=== PATIENT | male | born 1975 | race Hispanic/Latino ===

== ENCOUNTER 2019-04-01 12:01 | Emergency (ER) | payer OTHER ==
[~2019-04-01] VITALS: Ht 170.2 cm; Wt 117.9 kg
--- OUTSIDE RECORDS SUMMARY | 2019-04-01 12:04 | XMS REPORT | Continuity of Care Document ---
Author Author [employer] Organization [employer] Address Unknown Phone Unavailable Care Team Providers Care Credit Control Clerk Name Role Phone [employer] Unavailable Unavailable Problems Problem Status Onset Date Classification Date Reported Comments Source RT ACL Active 08/14/2016 [facility] [place] UNK Active 08/07/2016 [facility] [place] M54.12 - "RADICULOPATHY, CERVICAL REGION Active 06/26/2015 MARTHA Peres Anxiety (finding) Active Problem [facility]/15[facility] [place] Headache (finding) Active Problem 09/15/2016 Larisa [facility] [place] Hypercholesterolemia (disorder) Active Problem 09/15/2016 [facility] [place] Insomnia (disorder) Active Problem 09/15/2016 [facility] Medications Medication Details Route Status Patient Instructions Ordering Provider Order Date Source albuterol (ANES) Route: IV, Drug form: AERO/A, ONCE, Stop date: 08/09/16 13:38:00 SHELL SHOP SUPERVISOR Inactive 08/09/2016 Larisa Fentanyl 25 microgram, 0.5 mL, Route: IV, Drug form: INJ, Q10Min, Dosing Weight 115, kg, PRN Pain Score 6-10, Start date: 08/09/16 13:36:00 SHELL SHOP SUPERVISOR, Duration: 30 day, Stop date: 09/08/16 13:35:00 CSTNotes: (Same as: Sublimaze) Preservative free. Inactive 08/09/2016 Larisa Ondansetron 4 mg, Route: IVP, ONCE, Dosing Weight 115, kg, PRN Nausea & Vomiting, Start date: 08/09/16 13:36:00 SHELL SHOP SUPERVISOR Inactive 08/09/2016 Larisa Morphine 4 mg, Route: IVP, Q5Min, Dosing Weight 115, kg, PRN Pain Score 7-10, Start date: 08/09/16 13:36:00 SHELL SHOP SUPERVISOR, Duration: 3 doses or times, Stop date: Limited # of times Inactive 08/09/2016 [facility] Flumazenil 0.2 mg, Route: IVP, PRN, Dosing Weight 115, kg, PRN Benzodiazepine Reversal, Initial dose, Start date: 08/09/16 13:36:00 SHELL SHOP SUPERVISOR, Duration: 30 day, Stop date: 09/08/16 13:35:00 SHELL SHOP SUPERVISOR Inactive 08/09/2016 [facility] Hydromorphone 0.5 mg, Route: IVP, Q5Min, Dosing Weight 115, kg, PRN Pain Score 7-10, Start date: 08/09/16 13:36:00 SHELL SHOP SUPERVISOR, Duration: 4 doses or times, Stop date: Limited # of times Inactive 08/09/2016 [facility] Naloxone 0.4 mg, Route: IVP, Q2MIN, Dosing Weight 115, kg, PRN Narcotic Reversal, Start date: 08/09/16 13:36:00 SHELL SHOP SUPERVISOR, Duration: 8 doses or times, Stop date: Limited # of times Inactive 08/09/2016 [facility] Oxycodone 10 mg, Route: PO, Drug form: TAB, Q4H, Dosing Weight 115, kg, PRN Pain Score 7-10, Start date: 08/09/16 13:36:00 SHELL SHOP SUPERVISOR, Duration: 30 day, Stop date: 09/08/16 13:35:00 SHELL SHOP SUPERVISOR Inactive 08/09/2016 [facility] Tramadol 50 mg, 1 tab, Route: PO, Drug form: TAB, Q6H, Dosing Weight 115, kg, PRN Pain Score 1-3, Start date: 08/09/16 13:04:00 SHELL SHOP SUPERVISOR, Duration: 30 day, Stop date: 09/08/16 13:03:00 CSTNotes: Not to exceed 400m g/day. (Same As: Ultram) No Longer Active 08/09/2016 [facility] Acetaminophen 325 MG / Hydrocodone Bitartrate 10 MG Oral Tablet 1 tab, Route: PO, Drug Form: TAB, Dosing Weight 115, kg, Q4H, PRN Pain Score 4-6, Start date: 08/09/16 13:04:00 SHELL SHOP SUPERVISOR, Duration: 30 day, Stop date: 09/08/16 13:03:00 CSTNotes: Do not exceed 4gm/day of acetaminophen. (Same as: [place] 325/10) No Longer Active 08/09/2016 [facility] ondansetron (ANES) Route: IV, Drug form: INJ, ONCE, Stop date: 08/09/16 11:48:00 SHELL SHOP SUPERVISOR Inactive 08/09/2016 [facility] ketOROLAC (ANES) IV, ONCE Inactive 08/09/2016 [facility] fentaNYL (ANES) Route: IV, Drug form: INJ, ONCE, Stop date: 08/09/16 11:43:00 SHELL SHOP SUPERVISOR Inactive 08/09/2016 [facility] lidocaine (ANES) Route: IV, Drug form: INJ, ONCE, Stop date: 08/09/16 11:38:00 SHELL SHOP SUPERVISOR Inactive 08/09/2016 [facility] propofol (ANES) Route: IV, Drug form: INJ, ONCE, Stop date: 08/09/16 11:38:00 SHELL SHOP SUPERVISOR Inactive 08/09/2016 [facility] ceFAZolin (ANES) Route: IV, Drug form: INJ, ONCE, Stop date: 08/09/16 11:38:00 SHELL SHOP SUPERVISOR Inactive 08/09/2016 [facility] midazolam (ANES) Route: IV, Drug form: SOLN, ONCE, Stop date: 08/09/16 11:28:00 SHELL SHOP SUPERVISOR Inactive 08/09/2016 [facility] vancomycin (ANES) (ANES) Route: IV, Drug form: INJ, Start date: 08/09/16 11:08:00 SHELL SHOP SUPERVISOR, Stop date: 08/09/16 12:08:00 SHELL SHOP SUPERVISOR Inactive 08/09/2016 [facility] LR 1000 mL INJ (ANES) Route: IV, Total Volume: 1,000, Start date: 08/09/16 10:25:00 SHELL SHOP SUPERVISOR, Stop date: 08/09/16 11:25:00 SHELL SHOP SUPERVISOR Inactive 08/09/2016 [facility] Benadryl 12.5 mg, Route: IVP, ONCE, Dosing Weight 115, kg, PRN Allergic reaction, Start date: 08/09/16 8:45:00 SHELL SHOP SUPERVISOR Inactive 08/09/2016 [facility] Calcium Chloride 0.0014 MEQ/ML / Potassium Chloride 0.004 MEQ/ML / Sodium Chloride 0.103 MEQ/ML / Sodium Lactate 0.028 MEQ/ML Injectable Solution 1,000 mL, Rate: 25 ml/hr, Infuse over: 40 hr, Route: IV, Dosing Weight 115 kg, Total Volume: 1,000, Start date: 08/09/16 6:31:00 SHELL SHOP SUPERVISOR, Duration: 30 day, Stop date: 09/08/16 6:30:00 SHELL SHOP SUPERVISOR Inactive 08/09/2016 [facility] Vancomycin 1,750 mg, Route: IVPB, ONCE, Dosing Weight 115, kg, Start date: 08/09/16 6:15:00 SHELL SHOP SUPERVISOR, Stop date: 08/09/16 6:15:00 SHELL SHOP SUPERVISOR, Pediatric DosingNotes: TIME CRITICAL MEDICATION (Same As: Vancocin) Infusion ra te 2001 mg: infuse over 2.5 hours MEDICATION WASTE Product Size: 1000 mg Product Wasted: ___ mg Inactive 08/09/2016 [facility] Unknown Home Medication cholesterol medication, Refill(s) 0 Active 08/08/2016 [facility] Clonazepam PO, TID, 0 Refill(s) Active 08/08/2016 [facility] Paroxetine PO, 0 Refill(s) Active 08/08/2016 [facility] meloxicam PO, Daily, 0 Refill(s) Active 08/08/2016 [facility] Trazodone PO, 0 Refill(s) Active 08/08/2016 [facility] Allergies, Adverse Reactions, Alerts Substance Category Reaction Severity Reaction type Status Date Reported Comments Source anabolic steroids Assertion Drug allergy Active [facility] [place] Immunizations No Data Provided for This Section Results No Data Provided for This Section Pathology Reports No Data Provided for This Section Diagnostic Reports Report Value Date Source Spine cervical series DX REASON FOR EXAM: M54.12 Radiculopathy, cervical region. COMPARISON: None. FINDINGS: A complete cervical spine series was performed. Five images are submitted. Only 6 cervical vertebral bodies are adequately visualized on the lateral view. There is straightening of the normal cervical lordosis. There are mild degenerative changes of the atlanto-dens interval. There are small anterior marginal osteophytes at C3 and C5. There are right-sided uncal vertebral joint hypertrophy and mild right bony neural foraminal narrowing at C3-C4. The disc spaces are preserved. There is no demonstrable fracture, dislocation or prevertebral soft tissue swelling. IMPRESSION: 1. Straightening of the normal cervical lordosis. 2. Mild degenerative changes of the cervical spine as described above. SL: 15 06/27/2015 MARTHA Peres Consultation Notes No Data Provided for This Section Discharge Summaries No Data Provided for This Section History and Physicals No Data Provided for This Section Vital Signs Vital Sign Value Date Comments Source Systolic (mm Hg) 126 08/09/2016 [facility] Diastolic (mm Hg) 86 08/09/2016 [facility] Respitory Rate 19 08/09/2016 [facility] Systolic (mm Hg) 126 08/09/2016 [facility] Diastolic (mm Hg) 86 08/09/2016 [facility] Respitory Rate 20 08/09/2016 [facility] Systolic (mm Hg) 151 08/09/2016 [facility] Diastolic (mm Hg) 96 08/09/2016 [facility] Respitory Rate 11 08/09/2016 [facility] Heart Rate 81 08/09/2016 [facility] Temperature Oral (F) 98.6 F 08/08/2016 [facility] Heart Rate 96 08/08/2016 [facility] Height 175.26 cm 08/08/2016 [facility] Weight 115 08/08/2016 [facility] BMI Calculated 37.44 08/08/2016 [facility] Encounters Location Location Details Encounter Type Encounter Number Reason For Visit Attending Provider ADM Date DC Date Status Source [facility] [place] [facility] [id number] Kyle Gonzalez 06/27/2015 [facility] [id number] Luis Fregoso 08/09/2016 08/09/2016 [facility] [place] OP Therapy Patients [id number] Luis Fregoso 08/14/2016 09/13/2016 [facility] [place] Procedures Procedure Code Date Perfomer Comments Source Knee joint operation<sup>1</sup> [id number] acl repair [facility] [place] Assessment and Plan No Data Provided for This Section Plan of Care No Data Provided for This Section Social History Social History Date Source Social History TypeResponse Smoking Status Never smoker; Exposure to Tobacco Smoke None; Cigarette Smoking Last 365 Days No; Reg Smoking Cessation Counseling No 08/08/2016 [facility] [place] Social History TypeResponse Smoking Status Never smoker; Exposure to Tobacco Smoke None; Cigarette Smoking Last 365 Days No; Reg Smoking Cessation Counseling No 08/08/2016 [facility] No data available for this section 06/28[facility] [place] Family History No Data Provided for This Section Advance Directives No Data Provided for This Section Functional Status No Data Provided for This Section
--- OUTSIDE RECORDS SUMMARY | 2019-04-01 12:04 | XMS REPORT | Summary of Care ---
Author Author [facility] Organization [facility] Address Unknown Phone Unavailable Encounter DANGELO Yusuf(MARTHA) [id number] Date(s): 08/09/16 - 08/09/16 [facility] [address] [place] [address]- S [phone] Discharge Disposition: Home or Self Care Attending Physician: Luis Fregoso MD Referring Physician: Luis Fregoso MD Vital Signs 1 2 3 Most recent to oldest [Reference Range]: 175.26 cm (08/08/16 3:24 PM) Height 98.6 DegF (08/08/16 3:24 PM) Temperature Oral [96.4-99.1 DegF] 126/86 mmHg (08/09/16 2:05 PM) 126/86 mmHg (08/09/16 2:00 PM) 151/96 mmHg *HI* (08/09/16 1:45 PM) Blood Pressure [90-140/60-90 mmHg] 19 BRMIN (08/09/16 2:05 PM) 20 BRMIN (08/09/16 2:00 PM) 11 BRMIN *LOW* (08/09/16 1:45 PM) Respiratory Rate [14-20 BRMIN] 81 bpm (08/09/16 5:43 AM) 96 bpm (08/08/16 3:24 PM) Peripheral Pulse Rate [60-100 bpm] 115 kg (08/08/16 3:24 PM) Weight 37.44 m2 (08/08/16 3:24 PM) Body Mass Index Problem List Condition Effective Dates Status Health Status Informant Anxiety(Confirmed) Active Head ache(Confirmed) Active Headache(Confirmed) Active Hypercholesterolemia Active (Confirmed) Insomnia(Confirmed) Active Allergies, Adverse Reactions, Alerts Substance Reaction Severity Status anabolic steroids Active Medications acetaminophen-hydrocodone 325 mg-10 mg oral tablet 1 tab, Route: PO, Drug Form: TAB, Dosing Weight 115, kg, Q4H, PRN Pain Score 4-6 , Start date: 08/09/16 13:04:00 NEWSPAPER CORRESPONDENT, Duration: 30 day, Stop date: 09/08/16 13:03 :00 NEWSPAPER CORRESPONDENT Notes: Do not exceed 4gm/day of acetaminophen. (Same as: [place] 325/10) Start Date: 08/09/16 Stop Date: 08/10/16 Status: Discontinued albuterol (ANES) Route: IV, Drug form: AERO/A, ONCE, Stop date: 08/09/16 13:38:00 NEWSPAPER CORRESPONDENT Start Date: 08/09/16 Stop Date: 08/09/16 Status: Completed ANES flumazenil 0.2 mg, Route: IVP, PRN, Dosing Weight 115, kg, PRN Benzodiazepine Reversal, Ini tial dose, Start date: 08/09/16 13:36:00 NEWSPAPER CORRESPONDENT, Duration: 30 day, Stop date: 09/08 13:35:00 NEWSPAPER CORRESPONDENT Start Date: 08/09/16 Stop Date: 08/09/16 Status: Discontinued ANES HYDROmorphone 0.5 mg, Route: IVP, Q5Min, Dosing Weight 115, kg, PRN Pain Score 7-10, Start santiago e: 08/09/16 13:36:00 NEWSPAPER CORRESPONDENT, Duration: 4 doses or times, Stop date: Limited # of ti mes Start Date: 08/09/16 Stop Date: 08/09/16 Status: Discontinued ANES morphine Sulfate 4 mg, Route: IVP, Q5Min, Dosing Weight 115, kg, PRN Pain Score 7-10, Start date: 08/09/16 13:36:00 NEWSPAPER CORRESPONDENT, Duration: 3 doses or times, Stop date: Limited # of times Start Date: 08/09/16 Stop Date: 08/09/16 Status: Discontinued ANES naloxone 0.4 mg, Route: IVP, Q2MIN, Dosing Weight 115, kg, PRN Narcotic Reversal, Start d ate: 08/09/16 13:36:00 NEWSPAPER CORRESPONDENT, Duration: 8 doses or times, Stop date: Limited # of times Start Date: 08/09/16 Stop Date: 08/09/16 Status: Discontinued ANES ondansetron 4 mg, Route: IVP, ONCE, Dosing Weight 115, kg, PRN Nausea & Vomiting, Start date: 08/09/16 13:36:00 NEWSPAPER CORRESPONDENT Start Date: 08/09/16 Stop Date: 08/09/16 Status: Discontinued ANES oxyCODONE 10 mg, Route: PO, Drug form: TAB, Q4H, Dosing Weight 115, kg, PRN Pain Score 7-1 0, Start date: 08/09/16 13:36:00 NEWSPAPER CORRESPONDENT, Duration: 30 day, Stop date: 09/08/16 13:3 5:00 NEWSPAPER CORRESPONDENT Start Date: 08/09/16 Stop Date: 08/09/16 Status: Discontinued Benadryl 12.5 mg, Route: IVP, ONCE, Dosing Weight 115, kg, PRN Allergic reaction, Start d ate: 08/09/16 8:45:00 NEWSPAPER CORRESPONDENT Start Date: 08/09/16 Stop Date: 08/09/16 Status: Completed ceFAZolin (ANES) Route: IV, Drug form: INJ, ONCE, Stop date: 08/09/16 11:38:00 NEWSPAPER CORRESPONDENT Start Date: 08/09/16 Stop Date: 08/09/16 Status: Completed clonazePAM PO, TID, 0 Refill(s) Start Date: 08/08/16 Status: Ordered fentaNYL 25 microgram, 0.5 mL, Route: IV, Drug form: INJ, Q10Min, Dosing Weight 115, kg, PRN Pain Score 6-10, Start date: 08/09/16 13:36:00 NEWSPAPER CORRESPONDENT, Duration: 30 day, Stop d ate: 09/08/16 13:35:00 NEWSPAPER CORRESPONDENT Notes: (Same as: Sublimaze) Preservative free. Start Date: 08/09/16 Stop Date: 08/09/16 Status: Discontinued fentaNYL (ANES) Route: IV, Drug form: INJ, ONCE, Stop date: 08/09/16 11:43:00 NEWSPAPER CORRESPONDENT Start Date: 08/09/16 Stop Date: 08/09/16 Status: Completed ketOROLAC (ANES) IV, ONCE Start Date: 08/09/16 Stop Date: 08/09/16 Status: Completed Lactated Ringers 1,000 mL 1,000 mL, Rate: 25 ml/hr, Infuse over: 40 hr, Route: IV, Dosing Weight 115 kg, T otal Volume: 1,000, Start date: 08/09/16 6:31:00 NEWSPAPER CORRESPONDENT, Duration: 30 day, Stop santiago e: 09/08/16 6:30:00 NEWSPAPER CORRESPONDENT Start Date: 08/09/16 Stop Date: 08/09/16 Status: Discontinued lidocaine (ANES) Route: IV, Drug form: INJ, ONCE, Stop date: 08/09/16 11:38:00 NEWSPAPER CORRESPONDENT Start Date: 08/09/16 Stop Date: 08/09/16 Status: Completed LR 1000 mL INJ (ANES) Route: IV, Total Volume: 1,000, Start date: 08/09/16 10:25:00 NEWSPAPER CORRESPONDENT, Stop date: 11:25:00 NEWSPAPER CORRESPONDENT Start Date: 08/09/16 Stop Date: 08/09/16 Status: Completed meloxicam PO, Daily, 0 Refill(s) Start Date: 08/08/16 Status: Ordered midazolam (ANES) Route: IV, Drug form: SOLN, ONCE, Stop date: 08/09/16 11:28:00 NEWSPAPER CORRESPONDENT Start Date: 08/09/16 Stop Date: 08/09/16 Status: Completed ondansetron (ANES) Route: IV, Drug form: INJ, ONCE, Stop date: 08/09/16 11:48:00 NEWSPAPER CORRESPONDENT Start Date: 08/09/16 Stop Date: 08/09/16 Status: Completed PARoxetine PO, 0 Refill(s) Start Date: 08/08/16 Status: Ordered propofol (ANES) Route: IV, Drug form: INJ, ONCE, Stop date: 08/09/16 11:38:00 NEWSPAPER CORRESPONDENT Start Date: 08/09/16 Stop Date: 08/09/16 Status: Completed tramadol 50 mg, 1 tab, Route: PO, Drug form: TAB, Q6H, Dosing Weight 115, kg, PRN Pain Sc ore 1-3, Start date: 08/09/16 13:04:00 NEWSPAPER CORRESPONDENT, Duration: 30 day, Stop date: 7 13:03:00 NEWSPAPER CORRESPONDENT Notes: Not to exceed 400mg/day. (Same As: Ultram) Start Date: 08/09/16 Stop Date: 08/10/16 Status: Discontinued trazodone PO, 0 Refill(s) Start Date: 08/08/16 Status: Ordered Unknown Home Medication cholesterol medication, Refill(s) 0 Start Date: 08/08/16 Status: Ordered vancomycin (ANES) (ANES) Route: IV, Drug form: INJ, Start date: 08/09/16 11:08:00 NEWSPAPER CORRESPONDENT, Stop date: 6 12:08:00 NEWSPAPER CORRESPONDENT Start Date: 08/09/16 Stop Date: 08/09/16 Status: Completed vancomycin + sodium chloride 0.9% 500 mL INJ (for IV set) 500 mL 1,750 mg, Route: IVPB, ONCE, Dosing Weight 115, kg, Start date: 08/09/16 6:15:00 NEWSPAPER CORRESPONDENT, Stop date: 08/09/16 6:15:00 NEWSPAPER CORRESPONDENT, Pediatric Dosing Notes: TIME CRITICAL MEDICATION(Same As: Vancocin)Infusion rate< 1000 mg: infuse over 1 [id number] - 1500 mg: infuse over 1.5 [id number] - 2000 mg: infuse over 2 hours> 2001 mg: infuse over 2.5 hours MEDICATION WASTE Product Size: 1000 mgProduct Wasted: ___ mg Start Date: 08/09/16 Stop Date: 08/09/16 Status: Completed Results No data available for this section Immunizations No data available for this section Procedures Procedure Date Related Diagnosis Body Site Knee joint operation1 1acl repair Social History Social History Type Response Smoking Status Never smoker; Exposure to Tobacco Smoke None; Cigarette Smoking Last 365 Days No; Reg Smoking Cessation Counseling No Assessment and Plan No data available for this section
--- OUTSIDE RECORDS SUMMARY | 2019-04-01 12:04 | XMS REPORT | Summary of Care ---
Author Author [facility] Outpatient Imaging [facility] [place] Address Unknown Phone Unavailable Encounter [facility] Encntr_alias(FIN) [id number] Date(s): 06/27/15 - 06/27/[address] [facility] Outpatient Imaging [address] [address]- [phone] Discharge Disposition: Home Attending Physician: Kyle Gonzalez MD Vital Signs No data available for this section Problem List Condition Effective Dates Status Health Status Informant Headache(Confirmed) Active Allergies, Adverse Reactions, Alerts Substance Reaction Severity Status NKDA Active Medications No data available for this section Results No data available for this section Immunizations No data available for this section Procedures No data available for this section Social History No data available for this section Assessment and Plan No data available for this section
--- OUTSIDE RECORDS SUMMARY | 2019-04-01 12:04 | XMS REPORT | Summary of Care ---
Author Author [facility] Address Unknown Phone Unavailable Encounter [facility] Encntr_koko(FIN) [id number] Date(s): 08/14/16 - 09/12/16 [facility] Discharge Disposition: Home or Self Care Attending Physician: Luis Fregoso MD Vital Signs No data available for this section Problem List Condition Effective Dates Status Health Status Informant Anxiety(Confirmed) Active Head ache(Confirmed) Active Headache(Confirmed) Active Hypercholesterolemia Active (Confirmed) Insomnia(Confirmed) Active Allergies, Adverse Reactions, Alerts Substance Reaction Severity Status anabolic steroids Active Medications No data available for this [...]
[2019-04-01] MEDS ORDERED: SODIUM CHLORIDE 0.9% 1000ML 1,000 ML IV STA (12:14)
[2019-04-01] MEDS ORDERED: MORPHINE SULFATE INJ 4 MG/ML INJ 1ML IV STA (12:14)
[2019-04-01] MEDS ORDERED: FAMOTIDINE 20 MG/2 ML VIAL IV ONE (12:15)
[2019-04-01] MEDS ORDERED: PROMETHAZINE 25MG/ NS 50ML (IV) IV ONE (12:15)
[2019-04-01] MEDS ORDERED: CIPROFLOXACIN 500 MG TAB PO ONE (12:15)
[2019-04-01] MEDS ORDERED: METRONIDAZOLE 500MG/NS 100ML 100 ML IV ONE (12:15)
[2019-04-01] MEDS ORDERED: PROMETHAZINE HCL (IM) 25 MG/ML VIAL ONE (12:35)
[2019-04-01] MEDS ORDERED: SODIUM CHLORIDE 0.9% 1000ML 1,000 ML ONE (12:35)
[2019-04-01] MEDS ORDERED: IOPAMIDOL 370 MG/ML 200 ML INFUS..BTL INJ ONE (12:37)
[2019-04-01] MEDS ORDERED: SODIUM CHLORIDE 0.9% 50ML 50 ML ONE (12:37)
--- NOTE | 2019-04-01 13:20 | NUR ---
PT RESTING, VITAL SIGNS STABLE, PT VOICES NO COMPLAINTS AT THIS TIME.
--- NOTE | 2019-04-01 14:32 | Diagnostic Imaging Report ---
Exam: CT abdomen and pelvis Clinical history: Diverticulitis Technique: Helical images of the abdomen and pelvis were obtained after IV contrast administration Findings: The lung bases are clear. There is no evidence of pleural effusion. The cardiac size is within normal limits. The liver, spleen, pancreas, gallbladder, adrenal glands, and kidneys are unremarkable. The small and large bowels are normal in caliber without evidence of obstruction. Soft tissue stranding is noted in the region of the sigmoid colon with mucosal thickening most consistent with acute diverticulitis. Punctate extraluminal air foci are noted which may represent microperforation without evidence of abscess formation. The bladder, prostate, and seminal vesicles are unremarkable. Impression: 1. Acute inflammatory changes in the region of the sigmoid colon most consistent with acute diverticulitis. There is possible small amount of extraluminal air which may suggest microperforation without evidence of abscess formation. Signed by: Dr. Ronny Cuello MD on 04/01/2019 2:29 PM
[2019-04-01 14:50] VITALS: BP 151/88
== END 2019-04-01 14:54 | disposition home or self-care (01) ==
LOC: FSED 12:01
DX: K57.20 Diverticulitis of large intestine with perforation and abscess without bleeding (principal)
CPT/HCPCS: 74177; 80053; 81003; 85025; 99284; J2270; J2550; J7030; Q9967

== ENCOUNTER 2020-10-10 13:46 | Emergency (ER) | payer OTHER ==
[~2020-10-10] VITALS: Ht 170.2 cm; Wt 120.2 kg
[2020-10-10] MEDS ORDERED: DECADRON6 MG PO (15:34)
[2020-10-10] MEDS ORDERED: PROVENTIL HFA6.7 GM INH (15:34)
[2020-10-10 15:53] VITALS: BP 113/79
== END 2020-10-10 15:58 | disposition home or self-care (01) ==
LOC: FSED 13:56
DX: U07.1 COVID-19 (principal); J18.9 Pneumonia, unspecified organism; R07.89 Other chest pain; R06.02 Shortness of breath; J98.01 Acute bronchospasm; B34.9 Viral infection, unspecified; R53.83 Other fatigue; Z87.19 Personal history of other diseases of the digestive system
CPT/HCPCS: 99282

== ENCOUNTER 2023-12-23 14:13 | Emergency (ER) | payer OTHER ==
[~2023-12-23] VITALS: Ht 170.2 cm; Wt 109.1 kg
[~2023-12-23 14:13] MED LIST: DECADRON6 MG PO; PROVENTIL HFA6.7 GM INH
[2023-12-23] MEDS: SODIUM CHLORIDE 0.9% 1000ML 1,000 ML IV ONE (15:02)
[2023-12-23] MEDS: Morphine 4mg INJECTION 4 MG/ML INJ IV ONE (15:02)
[2023-12-23] MEDS: ONDANSETRON HCL INJ 2MG/ML 2ML 2 MG/ML VIAL IV STA (15:02)
[2023-12-23] MEDS ORDERED: ONDANSETRON HCL INJ 2MG/ML 2ML 2 MG/ML VIAL ONE (15:03)
[2023-12-23] MEDS ORDERED: SODIUM CHLORIDE 0.9% 1000ML 1,000 ML ONE (15:04)
[2023-12-23] MEDS ORDERED: Morphine 4mg INJECTION 4 MG/ML INJ ONE (15:04)
[2023-12-23] MEDS ORDERED: IOPAMIDOL 370 MG/ML 100 ML INFUS..BTL INJ ONE (15:10)
[2023-12-23] MEDS ORDERED: ACETAMINOPHEN 325 MG TAB ONE (16:07)
[2023-12-23] MEDS: ACETAMINOPHEN 325 MG TAB PO ONE (16:07)
[2023-12-23] MEDS ORDERED: AMOX TR-K CLV1 EAC2 PO (16:24)
[2023-12-23] MEDS ORDERED: AUGMENTIN 500-1 EACH PO (16:24)
[2023-12-23] MEDS ORDERED: ONDANSETRON ODT4 MG PO (16:28)
[2023-12-23] MEDS ORDERED: PIPERACILLIN/TAZOBACTAM 3.375 GM VIAL ONE (17:03)
[2023-12-23 17:19] VITALS: O2SAT 96
== END 2023-12-23 17:41 | disposition home or self-care (01) ==
LOC: FSED 14:31
DX: R10.30 Lower abdominal pain, unspecified (principal); K57.30 Diverticulosis of large intestine without perforation or abscess without bleeding; M54.50 Low back pain, unspecified; R11.0 Nausea; R53.1 Weakness; K21.9 Gastro-esophageal reflux disease without esophagitis
CPT/HCPCS: 74177; 80053; 80307; 81003; 85025; 96374; 96375; 99284; J2270; J2405; J2543; J7030; Q9967

== ENCOUNTER 2024-10-02 19:15 | Emergency (ER) | payer OTHER ==
[~2024-10-02] VITALS: Ht 172.7 cm; Wt 107.5 kg
[~2024-10-02 19:15] MED LIST changes: +AMOX TR-K CLV1 EAC2 PO; +AUGMENTIN 500-1 EACH PO; +ONDANSETRON ODT4 MG PO
[2024-10-02 19:30] VITALS: PULSE 78; RESP 18; TEMP 97.8
[2024-10-02] MEDS ORDERED: CYCLOBENZAPRINE5 MG PO (20:13)
[2024-10-02 20:15] VITALS: BP 163/91; PULSE 78; RESP 18; TEMP 97.8; O2SAT 98
[2024-10-02] MEDS: KETOROLAC TROMETHAMINE 60 MG/2 ML VIAL IM ONE (20:29)
== END 2024-10-02 20:15 | disposition home or self-care (01) ==
LOC: FSED 19:31
DX: M54.50 Low back pain, unspecified (principal); K59.00 Constipation, unspecified; R03.0 Elevated blood-pressure reading, without diagnosis of hypertension; K21.9 Gastro-esophageal reflux disease without esophagitis; Z87.19 Personal history of other diseases of the digestive system; F17.210 Nicotine dependence, cigarettes, uncomplicated
CPT/HCPCS: 81003; 96372; 99282; J1885